=== PATIENT | female | born 1980 | race African-American/Black ===

== ENCOUNTER 2016-07-03 00:11 | Emergency (ER) | payer OTHER ==
[~2016-07-03] VITALS: Ht 167.6 cm; Wt 54.4 kg
[~2016-07-03 00:11] MED LIST: IBUPROFEN600 MG ORAL; NORCO 5-325 TA1 EACH ORAL
[2016-07-03] MEDS ORDERED: Acetaminophen 500mg (ES) tab ORAL ONE (00:30)
[2016-07-03 00:54] LABS: APPEARANCE,URINE CLEAR; KETONES,URINE NEGATIVE (NEGATIVE); LEUKOCYTE ESTERASE ,URINE NEGATIVE (NEGATIVE); NITRITE,URINE NEGATIVE (NEGATIVE); PH,URINE 7 (4.5-8.0); PROTEIN,URINE NEGATIVE (NEGATIVE); UROBILINOGEN,URINE NORMAL MG/DL (0.0-1.0)
[2016-07-03 02:07] LABS: BASOPHILS % (AUTO) 1.1 % (0.0-2.0); EOSINOPHILS % (AUTO) 0.7 % (0.0-3.0); LYMPHOCYTES % (AUTO) 10.5 % (20.0-45.0); MEAN CORPUSCULAR HGB CONC 32.4 G/DL (32.0-36.0); MEAN CORPUSCULAR VOLUME 102 FL (80-99); MEAN PLATELET VOLUME 7.9 FL (6.5-10.1); MONOCYTES % (AUTO) 7.9 % (1.0-10.0); NEUTROPHILS % (AUTO) 79.7 % (45.0-75.0); PLATELET COUNT 239 K/UL (150-450); RED BLOOD COUNT 3.92 M/UL (4.20-5.40); RED CELL DISTRIBUTION WIDTH 11.9 % (11.6-14.8); WHITE BLOOD COUNT 9.1 K/UL (4.8-10.8)
[2016-07-03 02:26] LABS: CALCIUM 9.7 mg/dL (8.6-10.2); CARBON DIOXIDE 25 mEQ/L (20-30); CREATININE 0.7 mg/dL (0.5-0.9); GLOMERULAR FILTRATION RATE > 60 mL/min (>60); HEMOLYSIS 2
[2016-07-03 02:27] LABS: ANION GAP 15 (5-15); CHLORIDE 99 mEQ/L (98-107); POTASSIUM 4.1 mEQ/L (3.4-4.9); SODIUM 139 mEQ/L (135-145)
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
[2016-07-03 04:21] VITALS: BP 107/57
--- NOTE | 2016-07-03 09:48 | Diagnostic Imaging Report ---
Indication: PAIN Technique: ULT OB LIMITED Comparison: None. Findings: Limited transabdominal ultrasound performed of the uterus. The bladder is empty. There is a fluid collection within the uterus with a double decidual sac sign. On the images provided, no definite embryo or yolk sac is identified. Mean sac diameter is 7.8 mm. This corresponds to approximately 5 weeks. Ovaries are not visualized. Impression: Single intrauterine at approximately 5 weeks gestation. Viability not determined. Followup of 11 days suggested if clinically warranted.
== END 2016-07-03 04:22 | disposition home or self-care (01) ==
LOC: EMR 00:56
DX: O20.0 Threatened abortion (principal); Z3A.01 Less than 8 weeks gestation of pregnancy
CPT/HCPCS: 36415; 76815; 80048; 80300; 81003; 81025; 84702; 85025; 86850; 86900; 86901; 96374